=== PATIENT | female | born 1960 | race Caucasian/White ===

== ENCOUNTER 2019-04-22 06:46 | Day surgery (SDC) | payer OTHER ==
[2019-04-21 12:15] VITALS: BMI 43.5
[2019-04-22] MEDS ORDERED: PROPOFOL 200 MG/20 ML VIAL ONE (10:46)
--- NOTE | 2019-04-22 17:18 | OP ---
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 PROCEDURE PERFORMED: Colonoscopy with snare polypectomy. INDICATIONS: 1. History of colon polyps. 2. Last colonoscopy was 5 years ago. MEDICATIONS: See Anesthesia record. FINDINGS: After discussion of the risks, benefits, and alternatives of the procedure, informed consent was obtained and witnessed. Pre-endoscopic cardiopulmonary examination was satisfactory. Time-out was performed before sedation was achieved. Sedation was achieved with Anesthesia assistance in the endoscopy unit. Digital rectal exam was performed, which was unremarkable. A Pentax adult colonoscope was inserted into the anus and passed forward to the cecum in the usual fashion. The cecal base was identified by the appendiceal orifice as well as the ileocecal valve. The terminal ileum was not intubated. The colonoscope was slowly withdrawn in a gradual and circumferential manner with careful examination of the entire colonic mucosa. The quality of the prep was good. There was a single 2 mm polyp in the descending colon, which was completely removed with cold snare, but not retrieved for pathology. There was diverticulosis in the left side of the colon. The colonic mucosa appeared otherwise normal. Retroflexion in the rectum was otherwise unremarkable. The colonoscope was completely withdrawn, and the patient allowed to recover. The patient tolerated the procedure well. There were no immediate postprocedure complications. IMPRESSION: 1. 2 mm descending colon polyp, completely removed with cold snare, not retrieved for pathology. 2. Left-sided diverticulosis. 3. Otherwise normal colonoscopy to the cecum. RECOMMENDATION: Repeat colonoscopy for surveillance in 5 years. Job ID: [id number]
== END 2019-04-22 11:50 | disposition home or self-care (01) ==
LOC: SDC 06:46
PROVIDERS: ATTEND Internal Medicine
PROC: 0DBM8ZZ Excision of Descending Colon, Via Natural or Artificial Opening Endoscopic (ICD-10-PCS; principal; 2019-04-22)
DX: Z12.11 Encounter for screening for malignant neoplasm of colon (principal); K63.5 Polyp of colon; K57.30 Diverticulosis of large intestine without perforation or abscess without bleeding; E78.5 Hyperlipidemia, unspecified; E03.9 Hypothyroidism, unspecified; G47.30 Sleep apnea, unspecified; E66.9 Obesity, unspecified; Z68.41 Body mass index [BMI] 40.0-44.9, adult; Z79.51 Long term (current) use of inhaled steroids; Z79.899 Other long term (current) drug therapy; Z86.010 Personal history of colon polyps
CPT/HCPCS: J2704